=== PATIENT | female | born 1955 | race Caucasian/White ===

== ENCOUNTER 2019-07-28 09:29 | Day surgery (SDC) | payer MEDICARE, OTHER ==
[~2019-07-28] VITALS: Ht 167.6 cm; Wt 59.3 kg
[2019-07-28] MEDS ORDERED: SUMA25 PO (10:18)
[2019-07-28] MEDS ORDERED: Estrace Vagin42.5 GM (10:18)
[2019-07-28] MEDS ORDERED: ASCO500 PO (10:19)
[2019-07-28] MEDS ORDERED: CALCIUM CIT 311 EACH PO (10:19)
[2019-07-28] MEDS ORDERED: MAGNESIUM PO (10:19)
--- NOTE | 2019-07-28 10:42 | NUR ---
History, Chart, Medications and Allergies reviewed before start of procedure. Patient confirms NPO status and agrees with scheduled surgery. Reports taking all of colon prep with clear, yellow results. Reports having nausea and vomiting from prep.
--- NOTE | 2019-07-28 11:21 | NUR ---
07/28/19 1121 Laura Walsh History, Chart, Medications and Allergies reviewed before start of procedure.PATIENT DETERMINED TO BE ASA APPROPRIATE FOR PROPOFOL SEDATION PRIOR TO START OF PROCEDURE BY .MONITOR INTACT WITH CONTINUOUS PULSE OXIMETRY AND INTERMITTENT BP.3-LEAD EKG REVIEWED WITH PHYSICIAN PRIOR TO START OF PROCEDURE.O2 VIA N/C INTACT THROUGHOUT SEDATION/PROCEDURE.
--- NOTE | 2019-07-28 12:21 | NUR ---
Discharge instructions reviewed with patient. Patient verbalizes understanding. Copy given to patient to take home. Discharged via wheelchair to private car for ride home.
== END 2019-07-28 22:56 | disposition home or self-care (01) ==
LOC: ORSCMMR 09:29 → ORD 10:30 → ORSCMMR 10:30
PROVIDERS: Internal Medicine Gastroenterology
PROC: 0DBN8ZX Excision of Sigmoid Colon, Via Natural or Artificial Opening Endoscopic, Diagnostic (ICD-10-PCS; principal; 2019-07-28 10:30)
DX: Z12.11 Encounter for screening for malignant neoplasm of colon (principal); D12.5 Benign neoplasm of sigmoid colon
CPT/HCPCS: 88305; J2250; J2704; J7120